=== PATIENT | female | born 1975 ===

== ENCOUNTER 2021-09-06 11:45 | Inpatient (IN) | payer OTHER ==
[~2021-09-06] VITALS: Ht 160 cm; Wt 62.6 kg
[2021-09-11] MEDS ORDERED: MEGESTROL ACETA40 MG (15:02)
== END 2021-09-12 15:25 | disposition home or self-care (01) | DRG 743 ==
LOC: O/R 09-11 06:16 → OB/GYN 09-11 06:16 → SURG-SUITE 09-11 10:21 → OB/GYN 09-11 11:16 → SURH 09-11 11:45 → OB/GYN 09-12 15:25
PROVIDERS: ADMIT Specialist; ATTEND Specialist
PROC: 0UT74ZZ Resection of Bilateral Fallopian Tubes, Percutaneous Endoscopic Approach (ICD-10-PCS; 2021-09-11)
PROC: 0UT94ZZ Resection of Uterus, Percutaneous Endoscopic Approach (ICD-10-PCS; principal; 2021-09-11 14:45)
DX: D25.1 Intramural leiomyoma of uterus (principal); D25.2 Subserosal leiomyoma of uterus; N83.8 Other noninflammatory disorders of ovary, fallopian tube and broad ligament; N92.1 Excessive and frequent menstruation with irregular cycle; D50.0 Iron deficiency anemia secondary to blood loss (chronic); N88.8 Other specified noninflammatory disorders of cervix uteri